=== PATIENT | male | born 1945 | race Caucasian/White ===

== ENCOUNTER 2018-02-23 10:43 | Emergency (ER) | payer MEDICARE ==
[~2018-02-23] VITALS: Ht 188 cm; Wt 92.0 kg
[2018-02-23 10:50] VITALS: BP 174/82; PULSE 73; RESP 16; TEMP 97.9; O2SAT 95
--- NOTE | 2018-02-23 11:13 | PD ---
HPI Chief Complaint: Right flank pain Time Seen by Provider: 11:07 Travel History International Travel<30 days: No Contact w/Intl Traveler<30days: No Traveled to known affect area: No History of Present Illness HPI The patient is a 72-year-old male who presents to the emergency department for right flank pain of 2 weeks duration. The pain is intermittent, worse with sitting and driving, improved with standing upright and walking. The pain since pain is intermittent, is also present at night when lying supine. He does have a history of pain on the same side secondary to uric acid stones approximately 20-25 years ago. However, he denies any dysuria, frequency , urgency, or hematuria. He denies any nausea, vomiting, diarrhea, or change in bowel habits. He did have a similar episode 3 weeks ago which resolved after drinking IV fluids. He denies any radiation of the pain down the leg and denies any rash of the affected area. Symptoms are moderate. The patient does not have a local primary physician, is from [place]. [facility] Past Medical History Narrative Medical Hypertension, hyperlipidemia, orthostatic hypotension with positive tilt table test Past Surgical History Narrative Surgical Back surgery, tonsillectomy Social History Tobacco Use: No Allergies-Medications (Allergen,Severity, Reaction): Coded Allergies: No Known Allergies (Unverified , 02/23/18) Reported Meds & Prescriptions Reported Meds & Active Scripts Active Reported Proair Hfa 8.5 GM Inh (Albuterol Sulfate) 90 Mcg/Act Aer 1 Puff INH Q4H 108 mcg/actuation Aspirin 325 Mg Tab 325 Mg PO DAILY Celebrex (Celecoxib) 200 Mg Cap 200 Mg PO BID Hydrochlorothiazide 12.5 Mg Cap 12.5 Mg PO DAILY Fluoxetine (Fluoxetine HCl) 20 Mg Capsule 20 Mg PO DAILY Lipitor (Atorvastatin Calcium) 20 Mg Tab 20 Mg PO HS Lisinopril 20 Mg Tab 20 Mg PO DAILY Review of Systems Except as stated in HPI: all other systems reviewed are Neg General / Constitutional: No: Fever Cardiovascular: No: Chest Pain or Discomfort Respiratory: No: Shortness of Breath Gastrointestinal: No: Nausea, Vomiting, Diarrhea, Abdominal Pain Genitourinary: Positive: Flank Pain, No: Urgency, Frequency, Dysuria, Hematuria Musculoskeletal: No: Weakness, Pain Skin: No Rash Neurologic: No: Paresthesia, Sensory Disturbance Physical Exam Narrative GENERAL: Awake, alert, pleasant 72-year-old male who appears his stated age and is in no acute respiratory distress. SKIN: Focused skin assessment warm/dry. No stigmata of shingles. HEAD: Atraumatic. Normocephalic. EYES: Pupils equal and round. No scleral icterus. No injection or drainage. ENT: No nasal bleeding or discharge. Mucous membranes pink and moist. NECK: Trachea midline. No JVD. CARDIOVASCULAR: Regular rate and rhythm. No murmur appreciated. RESPIRATORY: No accessory muscle use. Clear to auscultation. Breath sounds equal bilaterally. GASTROINTESTINAL: Abdomen soft, non-tender, nondistended. No rebound tenderness , guarding, rigidity. Back: No CVA tenderness. MUSCULOSKELETAL: No obvious deformities. No clubbing. No cyanosis. No edema. NEUROLOGICAL: Awake and alert. No obvious cranial nerve deficits. Motor grossly within normal limits. Normal speech. PSYCHIATRIC: Appropriate mood and affect; insight and judgment normal. Data Data Last Documented VS Vital Signs Date Time Temp Pulse Resp B/P (MAP) Pulse Ox O2 Delivery O2 Flow Rate FiO2 02/23/18 11:14 95 Room Air 02/23/18 10:50 97.9 73 16 Orders Orders Urinalysis - C+S If Indicated (02/23/18 10:49) Complete Blood Count With Diff (02/23/18 11:07) Comprehensive Metabolic Panel (02/23/18 11:07) Lipase (02/23/18 11:07) Ct Abd/Pel W/O Iv Contrast (02/23/18 11:07) Iv Access Insert/Monitor (02/23/18 11:07) Ecg Monitoring (02/23/18 11:07) Oximetry (02/23/18 11:07) Sodium Chloride 0.9% Flush (Ns Flush) (02/23/18 11:15) Labs Laboratory Tests Test 02/23/18 12:00 White Blood Count 5.6 TH/MM3 Red Blood Count 5.58 MIL/MM3 Hemoglobin 15.3 GM/DL Hematocrit 47.0 % Mean Corpuscular Volume 84.1 FL Mean Corpuscular Hemoglobin 27.5 PG Mean Corpuscular Hemoglobin Concent 32.7 % Red Cell Distribution Width 13.7 % Platelet Count 221 TH/MM3 Mean Platelet Volume 7.3 FL Neutrophils (%) (Auto) 69.8 % Lymphocytes (%) (Auto) 14.2 % Monocytes (%) (Auto) 10.9 % Eosinophils (%) (Auto) 4.7 % Basophils (%) (Auto) 0.4 % Neutrophils # (Auto) 3.9 TH/MM3 Lymphocytes # (Auto) 0.8 TH/MM3 Monocytes # (Auto) 0.6 TH/MM3 Eosinophils # (Auto) 0.3 TH/MM3 Basophils # (Auto) 0.0 TH/MM3 CBC Comment DIFF FINAL Differential Comment Urine Collection Type CLEAN CATCH Urine Color YELLOW Urine Turbidity CLEAR Urine pH 7.0 Urine Specific [place] 1.020 Urine Protein NEG mg/dL Urine Glucose (UA) NEG mg/dL Urine Ketones NEG mg/dL Urine Occult Blood NEG Urine Nitrite NEG Urine Bilirubin NEG Urine Urobilinogen 0.2 MG/DL Urine Leukocyte Esterase NEG Urine WBC 0-2 /hpf Urine Mucus FEW /lpf Microscopic Urinalysis Comment CULT NOT INDICATED Blood Urea Nitrogen 21 MG/DL Creatinine 1.20 MG/DL Random Glucose 105 MG/DL Total Protein 7.6 GM/DL Albumin 3.6 GM/DL Calcium Level 8.7 MG/DL Alkaline Phosphatase 73 U/L Aspartate Amino Transf (AST/SGOT) 21 U/L Alanine Aminotransferase (ALT/SGPT) 21 U/L Total Bilirubin 0.7 MG/DL Sodium Level 140 MEQ/L Potassium Level 3.7 MEQ/L Chloride Level 103 MEQ/L Carbon Dioxide Level 30.6 MEQ/L Anion Gap 6 MEQ/L Estimat Glomerular Filtration Rate 59 ML/MIN Lipase 171 U/L MDM Medical Decision Making Medical Screen Exam Complete: Yes Emergency Medical Condition: Yes Medical Record Reviewed: Yes Interpretation(s) Last Impressions Abdomen/Pelvis CT 02/23/18 1107 Signed Impressions: Service Date/Time: Friday, February 23, 2018 11:24 - CONCLUSION: Bilateral nonobstructing 3 mm renal stones. No evidence of hydronephrosis. Moderate indentation of the base of the bladder by an enlarged prostate. Vinay Grant MD Laboratory Tests Test 02/23/18 12:00 White Blood Count 5.6 TH/MM3 Red Blood Count 5.58 MIL/MM3 Hemoglobin 15.3 GM/DL Hematocrit 47.0 % Mean Corpuscular Volume 84.1 FL Mean Corpuscular Hemoglobin 27.5 PG Mean Corpuscular Hemoglobin Concent 32.7 % Red Cell Distribution Width 13.7 % Platelet Count 221 TH/MM3 Mean Platelet Volume 7.3 FL Neutrophils (%) (Auto) 69.8 % Lymphocytes (%) (Auto) 14.2 % Monocytes (%) (Auto) 10.9 % Eosinophils (%) (Auto) 4.7 % Basophils (%) (Auto) 0.4 % Neutrophils # (Auto) 3.9 TH/MM3 Lymphocytes # (Auto) 0.8 TH/MM3 Monocytes # (Auto) 0.6 TH/MM3 Eosinophils # (Auto) 0.3 TH/MM3 Basophils # (Auto) 0.0 TH/MM3 CBC Comment DIFF FINAL Differential Comment Urine Collection Type CLEAN CATCH Urine Color YELLOW Urine Turbidity CLEAR Urine pH 7.0 Urine Specific [place] 1.020 Urine Protein NEG mg/dL Urine Glucose (UA) NEG mg/dL Urine Ketones NEG mg/dL Urine Occult Blood NEG Urine Nitrite NEG Urine Bilirubin NEG Urine Urobilinogen 0.2 MG/DL Urine Leukocyte Esterase NEG Urine WBC 0-2 /hpf Urine Mucus FEW /lpf Microscopic Urinalysis Comment CULT NOT INDICATED Blood Urea Nitrogen 21 MG/DL Creatinine 1.20 MG/DL Random Glucose 105 MG/DL Total Protein 7.6 GM/DL Albumin 3.6 GM/DL Calcium Level 8.7 MG/DL Alkaline Phosphatase 73 U/L Aspartate Amino Transf (AST/SGOT) 21 U/L Alanine Aminotransferase (ALT/SGPT) 21 U/L Total Bilirubin 0.7 MG/DL Sodium Level 140 MEQ/L Potassium Level 3.7 MEQ/L Chloride Level 103 MEQ/L Carbon Dioxide Level 30.6 MEQ/L Anion Gap 6 MEQ/L Estimat Glomerular Filtration Rate 59 ML/MIN Lipase 171 U/L Differential Diagnosis Differential diagnosis includes spinal stenosis, back pain with radiculopathy, shingles, hydronephrosis, nephrolithiasis, pyelonephritis, perforated appendicitis with abscess, biliary colic, cholecystitis, pancreatitis. Narrative Course IV was established, labs are drawn and sent, the patient was placed on cardiac telemetry monitoring and continuous pulse oximetry monitoring. UA was sent to lab. Noncontrast CT of the abdomen and pelvis was obtained. The patient declined pain medications in the emergency department including Toradol. BUN is slightly elevated at 21, otherwise unremarkable. UA is negative. CT the abdomen and pelvis reveals bilateral kidney stones but no obstructions or hydronephrosis. Patient does have an enlarged prostate with induration of the bladder indentation of the bladder, otherwise unremarkable. Patient has right flank pain that is worse with sitting for prolonged periods of time to improve with standing, most likely musculoskeletal. Patient will be placed on anti- inflammatories and muscle relaxers. He is advised to follow-up with his primary physician. He will be provided a copy of his CT results and lab results at discharge. Diagnosis Primary Impression: Right flank pain Patient Instructions: General Instructions Additional Instructions: Please provide the patient a copy of his CT results, lab results, and UA results at discharge. Medications as directed. Apply ice and/or heat to the affected area as needed. Return if symptoms worsen or progress. Med/Other Pt SpecificInfo: Prescription(s) given Scripts Cyclobenzaprine (Flexeril) 10 Mg Tab 10 MG PO TID for Muscle Spasm for 5 Days, #15 TAB 0 Refills Prov: Lorenzo Salas MD 02/23/18 Ibuprofen (Ibuprofen) 400 Mg Tab 400 MG PO Q6H Y for PAIN SCALE 1 TO 10, #20 TAB 0 Refills Prov: Lorenzo Salas MD 02/23/18 Disposition: DISCHARGE HOME Condition: Stable Lorenoz Salas MD Feb 23, 2018 11:13
[2018-02-23 11:14] VITALS: O2SAT 95
[2018-02-23] MEDS ORDERED: SODIUM CHLORIDE 0.9% FLUSH 10 ML FLUSH IV FLUSH PRN (11:15)
[2018-02-23] MEDS ORDERED: LISI-515 PO (11:22)
[2018-02-23] MEDS ORDERED: ALBUAER3 INH (11:22)
[2018-02-23] MEDS ORDERED: FLUO20CA12 PO (11:22)
[2018-02-23] MEDS ORDERED: ASPI-183 PO (11:22)
[2018-02-23] MEDS ORDERED: CELE200C PO (11:22)
[2018-02-23] MEDS ORDERED: HYDR12.57 PO (11:22)
[2018-02-23] MEDS ORDERED: LIPI20TA PO (11:22)
--- NOTE | 2018-02-23 11:51 | RADRPT ---
EXAM DATE/TIME: 02/23/2018 11:24 [facility] COMPARISON: No previous studies available for comparison. INDICATIONS : Intermittent right flank pain x 2 weeks. ORAL CONTRAST: No oral contrast ingested. RADIATION DOSE: 12.48 CTDIvol (mGy) MEDICAL HISTORY : Renal calculi. Hypertension. SURGICAL HISTORY : Back surgery. ENCOUNTER: Initial ACUITY: 2 weeks PAIN SCALE: 2/10 LOCATION: Right flank TECHNIQUE: Renal colic protocol. Volumetric scanning of the abdomen and pelvis was performed. Using automated exposure control and adjustment of the mA and/or kV according to patient size, radiation dose was kep t as low as reasonably achievable to obtain optimal diagnostic quality images. DICOM format image da ta is available electronically for review and comparison. FINDINGS: Right side: There is a solitary nonobstructing 3 mm stone midpole collecting system. No evidence of hydronephros is. No calcified stones or dilation of the right ureter. Left side: There is a nonobstructing 3 mm stone upper pole collecting system. No evidence of hydronephrosis. N o calcified stones or dilation of the left ureter. Bladder: Smooth margins. Calcifications in the lumen. Indentation on the base of the bladder by an enlarged prostate. Other: Small right fat containing inguinal hernia. Small umbilical hernia. No dilated loops of small or la rge bowel. 2 cm low-density lesion in the inferior right lobe of the liver as fluid density, charact eristic of a cyst. CONCLUSION: Bilateral nonobstructing 3 mm renal stones. No evidence of hydronephrosis. Moderate indentation of the base of the bladder by an enlarged prostate. Vinay Grant MD on February 23, 2018 at 11:40 Board Certified Radiologist. This report was verified electronically.
[2018-02-23 12:12] LABS: AUTOMATED NEUTROPHIL # 3.9 TH/MM3 (1.8-7.7); BASOPHIL % 0.4 % (0.0-2.0); EOSINOPHIL # 0.3 TH/MM3 (0-0.4); EOSINOPHIL % 4.7 % (0.0-4.0); HEMOGLOBIN 15.3 GM/DL (13.0-17.0); LYMPH % 14.2 % (9.0-44.0); LYMPHOCYTE # 0.8 TH/MM3 (1.0-4.8); MEAN CELL VOLUME 84.1 FL (80.0-100.0); MEAN CORPUSCULAR HEMOGLOBIN 27.5 PG (27.0-34.0); MEAN CORPUSCULAR HGB CONC 32.7 % (32.0-36.0); MEAN PLATELET VOLUME 7.3 FL (7.0-11.0); MONO % 10.9 % (0.0-8.0); MONOCYTE # 0.6 TH/MM3 (0-0.9); NEUT % 69.8 % (16.0-70.0); PLATELET COUNT 221 TH/MM3 (150-450); RED BLOOD COUNT 5.58 MIL/MM3 (4.50-5.90); RED CELL DISTRIBUTION WIDTH 13.7 % (11.6-17.2); WHITE BLOOD COUNT 5.6 TH/MM3 (4.0-11.0)
[2018-02-23 12:13] LABS: BILIRUBIN, URINE NEG (NEG); BLOOD, URINE NEG (NEG); GLUCOSE,URINE NEG (NEG); KETONE, URINE NEG (NEG); NITRITE,URINE NEG (NEG); URINE COLOR YELLOW (YELLW/STRAW); URINE LEUKOCYTE ESTERASE NEG (NEG)
[2018-02-23 12:19] LABS: MUCUS URINE FEW /lpf (OCC); WBC, URINE 0-2 /hpf (0-5)
[2018-02-23 12:25] LABS: CHLORIDE 103 MEQ/L (98-107); SODIUM (NA) 140 MEQ/L (136-145)
[2018-02-23 12:29] LABS: ALBUMIN 3.6 GM/DL (3.4-5.0); BICARBONATE 30.6 MEQ/L (21.0-32.0); BLOOD UREA NITROGEN 21 MG/DL (7-18); CALCIUM 8.7 MG/DL (8.5-10.1); GLUCOSE,RANDOM 105 MG/DL (74-106)
[2018-02-23 12:32] LABS: ALT (GPT) 21 U/L (12-78); AST (GOT) 21 U/L (15-37); GLOMERULAR FILTRATION RATE 59 ML/MIN (>89)
[2018-02-23 12:34] LABS: TOTAL BILIRUBIN ADULT 0.7 MG/DL (0.2-1.0); TOTAL PROTEIN 7.6 GM/DL (6.4-8.2)
[2018-02-23 12:35] LABS: ALKALINE PHOSPHATASE 73 U/L (45-117)
[2018-02-23] MEDS ORDERED: CYCL10TA PO (12:49)
[2018-02-23] MEDS ORDERED: IBUP1TAB5 PO (12:49)
== END 2018-02-23 13:30 | disposition home or self-care (01) ==
LOC: PHED 10:43
DX: R10.9 Unspecified abdominal pain (principal); N20.0 Calculus of kidney; N40.0 Benign prostatic hyperplasia without lower urinary tract symptoms; I10 Essential (primary) hypertension; E78.5 Hyperlipidemia, unspecified; Z79.82 Long term (current) use of aspirin; Z79.899 Other long term (current) drug therapy
CPT/HCPCS: 74176; 80053; 81001; 83690; 85025; 99284